=== PATIENT | male | born 1955 | race Caucasian/White ===

== ENCOUNTER → 2019-07-08 | Day surgery (SDC) | payer MEDICARE, OTHER ==
[~2019-07-08] MED LIST: AMLO5TAB4 PO; ASPI-171 PO; ATOR40TA PO; CHOL500062 PO; FEXO180T81 PO; FLUT9.9S NS; HYDR-2145 PO; IV RINGERS SOLUTION,LACTATED 1,000 ML IV SCH; MONT10TA80 PO; MULT-245 PO; NAPR220C4 PO; OMEG1CAP50 PO; ONDANSETRON PF 4 MG/2 ML VIAL. IV PRN; PROPOFOL 10,000 MCG/ML (20ML) VIAL IV ONE; PROPOFOL 40 ML IV ONE; TELM80TA PO
[2019-07-08 08:50] VITALS: BP 138/77
--- NOTE | 2019-07-09 15:09 | PATHOLOGY ---
[facility] Accession Number: [id number] . 01 Material submitted: . colon - ASCENDING POLYP. Modifiers: ascending . 01 Clinical history: . Screening . 02 Diagnosis: Colon biopsy, ascending colon polyp: - Hyperplastic polyp showing focal fibrosis and mild chronic inflammation of lamina propria. . (JPM:goldy; 07/09/2019) QMS 07/09/2019 0939 Local . 02 Comment: There are no adenomatous changes or evidence of malignancy. . 02 Electronically signed: . Juan Wren MD, Pathologist NPI- [id number] . 01 Gross description: . Received in formalin labeled "Oscar, Javid, ascending polyp," is a single segment of [place] soft tissue measuring 0.5 cm in maximum dimension. The specimen is entirely submitted in cassette A1. (TSD; 07/08/2019) TOB/TOB 07/08/2019 1657 Local . 02 Pathologist provided ICD-10: K63.5 . 02 CPT . 622292 Specimen Comment: A courtesy copy of this report has been sent to [phone] Specimen Comment: [phone] Specimen Comment: Report sent to / DR BAUTISTA Performed at: 01 [facility] [address], [place] [id number] MD Urbano Ontiveros MD Phone: [phone] Performed at: 02 [facility] [address] [place], [place] [id number] MD Juan Wren MD Phone: [phone]
== END ==
LOC: SURG 06:33
PROVIDERS: ATTEND Internal Medicine Gastroenterology
DX: Z12.11 Encounter for screening for malignant neoplasm of colon (principal); K63.5 Polyp of colon; K57.30 Diverticulosis of large intestine without perforation or abscess without bleeding; K64.1 Second degree hemorrhoids; I10 Essential (primary) hypertension; Z72.89 Other problems related to lifestyle; Z79.82 Long term (current) use of aspirin
CPT/HCPCS: 45380; J2704; J7120